=== PATIENT | female | born 1980 ===

== ENCOUNTER 2019-01-26 12:03 | Emergency (ER) | payer SELFPAY ==
[2019-01-26 12:08] VITALS: BMI 22.8
[2019-01-26 12:09] VITALS: RESP 18; O2SAT 99
[2019-01-26] MEDS ORDERED: Sodium Chloride 0.9% 1,000 ML IV STA (13:17)
--- NOTE | 2019-01-26 13:40 | ED PDOC ---
Syncope/Near Syncope/Dizziness Time Seen by Provider: 01/26/19 13:15 Chief Complaint (Nursing): Syncope Chief Complaint (Provider): syncope/preg History Per: Patient History/Exam Limitations: no limitations Onset/Duration Of Symptoms: Hrs Current Symptoms Are (Timing): Better Activity At Onset Of Symptoms: Sitting Associated Symptoms Preceding Syncopal Episode: No Predromal Symptoms (Sudden Onset) Seizure Or Post-ictal Symptoms: None Fall Associated With With Symptoms: No Injury As Result Of Fall Severity: None Pain Scale Rating Of: 0 Additional History Per: Patient Additional Complaint(s): 38 y/o female, 24 weeks preg with no past medical history presents to the ED with EMS after having a syncopal episode at [facility]. Patient states while getting a pelvic US she felt light headed, once test was complete she was sat in a chair and syncopized. Upon waking up patient reports personnel from the center were over her. Patient states she does recall what occurred. She states she felt fine yesterday and this am. She reports having a pancake prior to getting test done. She states she has been having intermittent lightheadedness with and same with her other pregnancies but has never "passed out". patient states she feels fine now, denies nause, vomiting, chest pain, sob, palpitation. dizziness, headache, blurry vision, recent illness, vaginal d/c/bleeding, pelvic pain. Patient is [id number] - Risk Factors PE Risk Factors: Pos: Neg: Extremity Immobilization/Fx, Decreased Mobilty /Activity, Recent Major Surgery, Active Cancer, Previous DVT, Previous PE, CHF, Venous Stasis, Estrogen Usage, Post-, Recent Major Trauma Past Medical History Reviewed: Historical Data, Nursing Documentation, Vital Signs Vital Signs: Last Vital Signs Temp 98.5 F 01/26/19 12:08 Pulse 71 01/26/19 12:08 Resp 18 01/26/19 12:08 BP 93/61 L 01/26/19 12:08 Pulse Ox 99 01/26/19 12:08 - Medical History PMH: No Chronic Diseases - Surgical History Surgical History: No Surg Hx - Family History Family History: States: Unknown Family Hx - Living Arrangements Living Arrangements: With Family - Social History Alcohol: None Drugs: Denies - Home Medications Home Medications: Ambulatory Orders Medication Instructions Recorded Ferrous Sulfate 325 mg PO TID #90 tablet 01/26/19 - Allergies Allergies/Adverse Reactions: Allergies Allergy/AdvReac Type Severity Reaction Status Date / Time No Known Allergies Allergy Verified 01/26/19 12:16 Review of Systems ROS Statement: Except As Marked, All Systems Reviewed And Found Negative Constitutional: Negative for: Fever, Chills, Sweats, Weakness, Malaise Gastrointestinal: Positive for: Abdominal Pain (luq pain ). Negative for: Nausea, Vomiting Genitourinary Female: Negative for: Dysuria Neurological: Negative for: Weakness, Numbness, Confusion, Dizziness Physical Exam - Reviewed Nursing Documentation Reviewed: Yes Vital Signs Reviewed: Yes - Physical Exam Appears: Positive for: Well, Non-toxic, No Acute Distress Head Exam: Positive for: ATRAUMATIC, NORMAL INSPECTION, NORMOCEPHALIC Skin: Positive for: Normal Color, Warm, DRY Eye Exam: Positive for: EOMI, Normal appearance, PERRL ENT: Positive for: Normal ENT Inspection Neck: Positive for: Normal, Painless ROM Cardiovascular/Chest: Positive for: Regular Rate, Rhythm Respiratory: Positive for: CNT, Normal Breath Sounds Pulses-Radial (L): 2+ Pulses-Radial (R): 2+ Gastrointestinal/Abdominal: Positive for: Normal Exam, Soft Back: Positive for: Normal Inspection Extremity: Positive for: Normal ROM, Tenderness (luq.. patiets states its slightly tender) Neurological/Psych: Positive for: Awake, Alert, Normal Tone, Oriented, Motor/Sensory Deficits (intact) - Laboratory Results Result Diagrams: 01/26/19 13:20 01/26/19 13:20 - ECG ECG: Positive for: Viewed By Me ECG Rhythm: Positive for: Normal QRS Interpretation Of ECG: seen and evaluated by Dr. Petty Rate: 75 O2 Sat by Pulse Oximetry: 99 Pulse Ox Interpretation: Normal Medical Decision Making Medical Decision Making: --CBC --CMP --UA --LIPASE --IV INSERTION --0.9NS 1 L --ORTHOSTATIC VITALS --RE-EVAL 15:40: Patient re-evaluated at this time. Patient states she feels better.Labs and vs reviewed by me noted hgb:8.7 hr: 27. Patient states she was told by obstetrics and gynecology professor she had iron deficiency anemia and was anemic but was not started on supplement. Patient instructed to follow-up with obstetrics and gynecology professor and pmd. rx given for ferrous sulfate, continue taking vitamins. patient verbalizes understanding and agrees with plan. Disposition - Clinical Impression Clinical Impression: Syncope, Iron deficiency anemia - Patient ED Disposition Is Patient to be Admitted: No Counseled Patient/Family Regarding: Diagnosis, Need For Followup, Rx Given - Disposition Disposition: Routine/Home Disposition Time: 15:44 Condition: IMPROVED Prescriptions: Ferrous Sulfate 325 mg PO TID #90 tablet Instructions: Anemia Caused by Low Iron Print Language: [place] - POA Present On Arrival: None
[2019-01-26 13:41] LABS: SQUAMOUS EPITHIAL 1 /hpf (0-5); URINE BACTERIA RARE (<OCC); URINE BILIRUBIN NEGATIVE (NEGATIVE); URINE BLOOD NEGATIVE (NEGATIVE); URINE CLARITY CLOUDY (Clear); URINE COLOR AMBER (YELLOW); URINE GLUCOSE (UA) NEG (NEGATIVE); URINE LEUKOCYTE ESTERASE NEG Leu/uL (Negative); URINE PROTEIN 30 mg/dL (NEGATIVE); URINE UROBILINOGEN 0.2-1.0 mg/dL (0.2-1.0)
[2019-01-26 13:43] LABS: ALBUMIN 3.6 g/dL (3.5-5.0); ALT/SGPT 35 U/L (9-52); AST/SGOT 27 U/L (14-36); BLOOD UREA NITROGEN 14 mg/dl (7-17); CALCIUM 8.7 mg/dL (8.4-10.2); GFR NON-AFRICAN AMERICAN > 60; LIPASE 120 U/L (23-300)
[2019-01-26 13:44] LABS: BASO % 0.3 % (0.0-2.0); EOS # 0.1 K/uL (0.0-0.7); EOS % 0.6 % (0.0-4.0); HEMOGLOBIN 8.7 g/dL (12.0-16.0); LYMPH # 1.2 K/uL (1.0-4.3); LYMPH % 8.7 % (20.0-40.0); MEAN CORPUSCULAR HEMOGLOBIN 23.1 pg (27.0-31.0); MEAN CORPUSCULAR HGB CONC 31.7 g/dL (33.0-37.0); MEAN PLATELET VOLUME 8.3 fl (7.2-11.7); MONO # 0.7 K/uL (0.0-0.8); MONO % 5.1 % (0.0-10.0); NEUT # 11.6 K/uL (1.8-7.0); NEUT % 85.3 % (50.0-75.0); PLATELET COUNT 310 K/uL (130-400); RBC 3.78 Mil/uL (3.80-5.20); RED CELL DISTRIBUTION WIDTH 16.7 % (11.5-14.5); WHITE BLOOD COUNT 13.6 K/uL (4.8-10.8)
--- NOTE | 2019-01-26 15:01 | CARD ---
APPROVED REPORT Date of service: 01/26/2019 EKG Measurement Heart [id number] <Conclusion> Normal sinus rhythm Normal ECG
[2019-01-26 16:06] LABS: ANISOCYTOSIS SLIGHT; HYPOCHROMIC SLIGHT; LYMPHOCYTE 9 % (20-50); MONOCYTE 9 % (0-10); NEUTROPHIL 82 % (42-75); OVALOCYTES SLIGHT; PLATELET ESTIMATE NORMAL (NORMAL); SCHISTOCYTES SLIGHT; TEARDROP CELLS SLIGHT; TOTAL CELLS COUNTED 100
[2019-01-26 16:11] VITALS: BP 95/60; TEMP 98.6
[2019-01-26 20:53] VITALS: PULSE 75
== END 2019-01-26 16:10 | disposition home or self-care (01) ==
LOC: H.ER 12:03
DX: R55 Syncope and collapse (principal); D50.9 Iron deficiency anemia, unspecified; Z33.1 Pregnant state, incidental
CPT/HCPCS: 80053; 81003; 82948; 83690; 84484; 85025; 93005; 96360; 99285; J7030